=== PATIENT | female | born 1990 | race Caucasian/White ===

== ENCOUNTER 2017-05-27 17:21 | Emergency (ER) | payer BC, OTHER ==
[2017-05-27 19:40] VITALS: BP 132/82
--- NOTE | 2017-05-27 19:48 | UC ---
Throat Pain/Nasal Herminio HPI - HPI Summary HPI Summary: 27 year old with cough. History of smoking and bladder cancer. Sinus pain/ pressure, fever, and feels SOB x1 month. Tried mucinex/cold meds w/ no relief. States SOB worse when lying down at night and unable to sleep lying flat d/t sob. Has had cough and not better. Had bladder cancer and treatment finished. non productive. waking up patient at night. smoking 3 cigs per day [ End ] - History of Current Complaint Chief Complaint: UCRespiratory Stated Complaint: COUGH,FATIGUE,FEVER Time Seen by Provider: 05/27/17 19:39 Hx Obtained From: Patient Hx Last Menstrual Period: implanon ?: No Onset/Duration: Gradual Onset Severity: Moderate Cough: Productive Associated Signs & Symptoms: Positive: Sinus Discomfort, Nasal Discharge - Allergies/Home Medications Allergies/Adverse Reactions: Allergies Allergy/AdvReac Type Severity Reaction Status Date / Time Sulfa Drugs Allergy Severe Swelling Verified 05/27/17 19:30 Home Medications: Home Medications Cholecalciferol TAB* [Vitamin D TAB*] 5,000 unit DAILY 05/27/17 [History Confirmed 05/27/17] Homeopathic Products [Sleep Medicine] 1 tab DAILY 05/27/17 [History Confirmed ] Omeprazole CAP* [Prilosec CAP* 20 MG] 1 cap DAILY 05/27/17 [History Confirmed ] PMH/Surg Hx/FS Hx/Imm Hx Previously Healthy: Yes GI/ History: Gastroesophageal Reflux Psychological History: Bipolar Disorder Cancer History: Other - bladder and auto immune disorder Other Cancer History: bladder - Surgical History Surgical History: Yes Surgery Procedure, Year, and Place: tonsils and adnoids removed. lingual frenulectomy. plastic surgery on ears. Multiple bladder sx/tumor removed - Family History Known Family History: Negative: Seizure Disorder - Social History Occupation: Employed Full-time Lives: With Family Alcohol Use: None Substance Use Type: None Smoking Status (MU): Current Every Day Smoker Type: Cigarettes Amount Used/How Often: 3 cigs/day Have You Smoked in the Last Year: Yes - Immunization History Most Recent Influenza Vaccination: no 2016 Review of Systems Constitutional: Fatigue ENT: Ear Ache, Nasal Discharge, Sinus Congestion, Sinus Pain/Tenderness Respiratory: Cough Is Patient Immunocompromised?: No All Other Systems Reviewed And Are Negative: Yes Physical Exam Triage Information Reviewed: Yes Appearance: Well-Appearing, No Pain Distress, Well-Nourished Vital Signs: Initial Vital Signs Temp 98.8 F 05/27/17 19:33 Pulse 82 05/27/17 19:33 Resp 16 05/27/17 19:33 BP 132/82 05/27/17 19:33 Pulse Ox 100 05/27/17 19:33 Vital Signs Reviewed: Yes Eye Exam: Normal ENT Exam: Normal Dental Exam: Normal Neck exam: Normal Neck: Positive: 1 Respiratory Exam: Normal Respiratory: Positive: Other: - coughing throughout Cardiovascular Exam: Normal Musculoskeletal Exam: Normal Neurological Exam: Normal Psychological Exam: Normal Skin Exam: Normal Throat Pain/Nasal Course/Dx - Course Course Of Treatment: xray neg -- given tessalon, with duration of sx and worsening will star antibiotics and if sx persist then return to PCP for further eval and advised to quit smoking - Differential Dx/Diagnosis Differential Diagnosis/HQI/PQRI: Pharyngitis, Sinusitis, Tonsillitis, URI Provider Diagnoses: Bronchitis Discharge - Discharge Plan Condition: Good Disposition: HOME Prescriptions: Albuterol HFA INHALER* [Ventolin HFA Inhaler*] 2 puff INH Q6H PRN #1 mdi PRN Reason: Cough Amoxicillin/Clavulanate TAB* [Augmentin TAB 875*] 875 mg PO BID #20 tab Benzonatate [Benzonatate 200 MG] 200 mg PO TID #20 cap Patient Education Materials: Acute Bronchitis (ED) Referrals: Kenny Colorado DO [Primary Care Provider] - 4 Days
[2017-05-27] MEDS ORDERED: Amoxicillin/Clavulanate TAB* 875 MG PO ONE ×2 (20:59→21:15)
--- NOTE | 2017-05-27 21:07 | RAD ---
INDICATION: Cough COMPARISON: None TECHNIQUE: PA and lateral dual-energy views were obtained. FINDINGS: Bones/Soft Tissues: There are no acute bony findings. There is mild kyphosis. Cardiomediastinal: The cardiomediastinal silhouette is normal. Lungs: There are no infiltrates. Pleura: There are no pleural effusions. Other: None IMPRESSION: NO ACTIVE DISEASE.
== END 2017-05-27 21:32 | disposition home or self-care (01) ==
LOC: UCCORT 17:21
DX: J40 Bronchitis, not specified as acute or chronic (principal); K21.9 Gastro-esophageal reflux disease without esophagitis; F31.9 Bipolar disorder, unspecified; Z85.51 Personal history of malignant neoplasm of bladder; Z88.2 Allergy status to sulfonamides; F17.210 Nicotine dependence, cigarettes, uncomplicated
CPT/HCPCS: 71046; 99212; A9270-GY; G0463